=== PATIENT | male | born 1950 | race Caucasian/White ===

== ENCOUNTER 2018-06-24 09:56 | Outpatient (CLI) | payer MEDICARE ==
--- NOTE | 2018-06-24 12:07 | RAD ---
LEFT HP 2 VIEWS: Date: 06/24/18 HISTORY: Hip pain. FINDINGS: There are mild degenerative changes at the hip. Femoral head contour is preserved. There is mild join t narrowing and minimal spurring from the acetabulum and femoral head. No fracture or acute abnormali ty. IMPRESSION: There are mild degenerative changes at the left hip. POS: [facility]
--- NOTE | 2018-06-24 12:22 | RAD ---
RIGHT SHOULDER TWO VIEWS: HISTORY: Chronic pain without trauma. COMPARISON: None. FINDINGS: The ribs are intact. The clavicles are intact. Mild degenerative changes of the acromioclavicular j oint. Mild calcific tendinosis of the rotator cuff. IMPRESSION: Calcific tendinosis, rotator cuff. POS: [facility]
--- NOTE | 2018-06-24 12:23 | RAD ---
LEFT SHOULDER TWO VIEWS: HISTORY: Chronic left shoulder pain. FINDINGS: No fracture, dislocation, or bony destruction is seen. There are mild degenerative changes in the ac romioclavicular joint. Calcific tendinosis of the rotator cuff is present. POS: [facility]
== END 2018-06-24 09:57 | disposition home or self-care (01) ==
LOC: MADRAD 09:56
PROVIDERS: ATTEND Family Medicine
DX: M25.511 Pain in right shoulder (principal); M25.512 Pain in left shoulder; M25.552 Pain in left hip; M16.12 Unilateral primary osteoarthritis, left hip; M75.31 Calcific tendinitis of right shoulder

== ENCOUNTER 2020-11-18 12:47 | Outpatient (CLI) | payer MEDICARE | END 2020-11-18 12:48 | disposition home or self-care (01) | LOC: MADLAB 12:47 | PROVIDERS: ATTEND Family Medicine | DX: C61 Malignant neoplasm of prostate (principal); R10.9 Unspecified abdominal pain; Z12.5 Encounter for screening for malignant neoplasm of prostate | CPT/HCPCS: 36415; 74018; 87086; G0103 ==

== ENCOUNTER 2022-08-05 08:02 | Outpatient (CLI) | payer MEDICARE | END 2022-08-05 08:03 | disposition home or self-care (01) | LOC: MADCT 08:02 | PROVIDERS: ATTEND Psychiatry & Neurology Neurology | DX: I61.8 Other nontraumatic intracerebral hemorrhage (principal) | CPT/HCPCS: 70450 ==